=== PATIENT | female | born 1955 | race Caucasian/White ===

== ENCOUNTER 2022-12-31 11:52 | Inpatient (IN) ==
[2022-12-31] MEDS ORDERED: IOPAMIDOL 100 ML BOTTLE IV ONE (11:53)
[2022-12-31] MEDS ORDERED: 0.9 % SODIUM CHLORIDE 1,000 ML IV ONE ×3 (11:55→13:19)
[2022-12-31] MEDS ORDERED: ONDANSETRON 4 MG/2 ML VIAL IV ONE (11:55)
[2022-12-31 12:05] LABS: POC Calcium, Ionized 1.21 (1.16-1.32); POC Creatinine 0.9 (0.6-1.2); POC Potassium 3.1 (3.3-5.1)
[2022-12-31] MEDS: morphine 2 MG/ML VIAL IV PRN ×2 (12:11→13:04)
[2022-12-31 12:44] LABS: Basophils # (Auto) 0.05 K/mcL (0.00-0.30); Basophils % (Auto) 0.2 % (0.0-2.0); Eosinophils # (Auto) 0.01 K/mcL (0.00-0.70); Eosinophils % (Auto) 0 % (0.0-7.0); Hematocrit 46.1 % (34.1-44.9); Hemoglobin 16.3 g/dL (11.2-15.7); Lymphocytes # (Auto) 0.95 K/mcL (1.50-4.80); Lymphocytes % (Auto) 4.7 % (15.5-49.0); Mean Cell Volume 96.4 fL (80.0-100.0); Mean Corpuscular HGB Conc 35.4 g/dL (31.0-36.0); Mean Platelet Volume 10.4 fL (8.8-12.5); Neutrophils % (Auto) 90.7 % (38.0-78.0); Platelet Count 319 K/mcL (140-440); RBC 4.78 M/mcL (3.59-5.38); Red Cell Distribution Width 12.7 % (11.5-14.5); WBC 20.2 K/mcL (4.5-11.0)
[2022-12-31 13:13] LABS: ALT/SGPT 19 U/L (<40); AST/SGOT 22 U/L (<32); Albumin 4.7 gm/dL (3.2-5.2); Alkaline Phosphatase 117 U/L (39-117); Bilirubin,Direct 0.2 mg/dL (<0.3); Bilirubin,Total 0.7 mg/dL (0.1-1.0); Globulin 2.4 gm/dL (2.2-3.7)
[2022-12-31] MEDS ORDERED: PIPERACILLIN SODIUM/TAZOBACTAM 3.375 GM in DEXTROSE 5% IN WATER 50 ML IV ONE (13:14)
[2022-12-31] MEDS ORDERED: PIPERACILLIN SODIUM/TAZOBACTAM 4.5 GM in DEXTROSE 5% IN WATER 50 ML IV ONE ×2 (13:18)
[2022-12-31] MEDS ORDERED: PANTOPRAZOLE 40 MG VIAL IV ONE (13:27)
[2022-12-31] MEDS: HYDROmorphone 1 MG/ML SYRINGE IV PRN ×2 (13:27→18:57)
[2022-12-31] MEDS ORDERED: PHENYLephrine 1 MG/10 ML SYRINGE (ANEST) ONE (15:13)
[2022-12-31] MEDS ORDERED: HYDROmorphone 1 MG/ML SYRINGE ONE (15:13)
[2022-12-31] MEDS ORDERED: ONDANSETRON 4 MG/2 ML VIAL ONE (15:13)
[2022-12-31] MEDS ORDERED: DEXAMETHASONE 10 MG/ML VIAL ONE (15:13)
[2022-12-31] MEDS ORDERED: SUGAMMADEX SODIUM 200 MG/2 ML VIAL IV ONE (15:13)
[2022-12-31] MEDS ORDERED: fentaNYL 100 MCG/2 ML VIAL IV ONE (15:13)
[2022-12-31] MEDS ORDERED: POTASSIUM CHLORIDE 40 MEQ/20 ML VIAL IV ONE (15:13)
[2022-12-31] MEDS ORDERED: ROCURONIUM 10 MG/ML ML IV ONE (15:13)
[2022-12-31] MEDS ORDERED: PROPOFOL 200 MG/20 ML VIAL IV ONE (15:13)
[2022-12-31 15:14] LABS: INR 0.8 (0.9-1.1); Prothrombin Time 11.3 sec (11.9-14.5)
[2022-12-31 16:02] LABS: POC Calcium, Ionized 1.18 (1.16-1.32); POC Creatinine 0.8 (0.6-1.2)
[2022-12-31] MEDS ORDERED: POTASSIUM CHLORIDE 40 MEQ in DEXTROSE 5% IN WATER 500 ML IV ONE (16:07)
[2022-12-31] MEDS ORDERED: PROMETHAZINE 25 MG/ML VIAL IV PRN (17:22)
[2022-12-31] MEDS ORDERED: ACETAMINOPHEN 1,000 MG/100 ML BAG IV ONE (17:22)
[2022-12-31] MEDS ORDERED: fentaNYL 100 MCG/2 ML VIAL IV PRN (17:22)
[2022-12-31] MEDS ORDERED: diphenhydrAMINE 50 MG/ML VIAL IV PRN (17:22)
[2022-12-31] MEDS ORDERED: MEPERIDINE 25 MG/ML VIAL IV PRN (17:22)
[2022-12-31] MEDS ORDERED: ePHEDrine 50 MG/ML AMPUL IV PRN (17:22)
[2022-12-31] MEDS ORDERED: IPRATROPIUM/ALBUTEROL 3 ML AMPUL.NEB NEB PRN (17:22)
[2022-12-31] MEDS ORDERED: NALOXONE HCL 0.4 MG/ML VIAL IV PRN (17:22)
[2022-12-31] MEDS ORDERED: METHOCARBAMOL 1,000 MG/10 ML VIAL IV PRN (17:22)
[2022-12-31] MEDS ORDERED: METOPROLOL TARTRATE 5 MG/5 ML VIAL IV PRN (17:22)
[2022-12-31] MEDS ORDERED: HYDROmorphone 0.5 MG/0.5 ML SYRINGE IV PRN (17:22)
[2022-12-31] MEDS ORDERED: LACTATED RINGERS 1,000 ML IV SCH (17:30)
[2022-12-31] MEDS ORDERED: IPRATROPIUM/ALBUTEROL 3 ML AMPUL.NEB NEB ONE (18:51)
[2022-12-31] MEDS ORDERED: ONDANSETRON 4 MG/2 ML VIAL IV PRN (19:05)
[2022-12-31] MEDS ORDERED: LEVALBUTEROL 1.25 MG/3 ML AMPUL.NEB NEB ONE (19:07)
[2022-12-31] MEDS ORDERED: MEROPENEM 0.5 GM in 0.9 % SODIUM CHLORIDE 50 ML IV SCH (19:15)
[2022-12-31] MEDS ORDERED: METHOCARBAMOL 1,000 MG/10 ML VIAL ONE (19:16)
[2022-12-31] MEDS ORDERED: BACITRACIN TOPICAL OINT 15 GM TUBE TOPICAL ONE (19:19)
[2022-12-31] MEDS ORDERED: OPIUM/BELLADONNA ALKALOIDS 30 MG SUPP.RECT PR ONE (19:21)
[2022-12-31] MEDS: DEXTROSE 5%-LR 1,000 ML IV SCH (20:57)
[2022-12-31] MEDS: HYDROmorphone 0.5 MG/0.5 ML SYRINGE IV PRN (21:12)
[2022-12-31] MEDS: 0.9 % SODIUM CHLORIDE 10 ML SYRINGE IV SCH (21:25)
[2022-12-31] MEDS: PANTOPRAZOLE 40 MG VIAL IV SCH (21:26)
[2022-12-31] MEDS: MEROPENEM 1 GM in 0.9 % SODIUM CHLORIDE 50 ML IV SCH (22:42)
[2023-01-01] MEDS: IPRATROPIUM/ALBUTEROL 3 ML AMPUL.NEB NEB SCH ×3 (00:36→13:07)
[2023-01-01] MEDS: HYDROmorphone 0.5 MG/0.5 ML SYRINGE IV PRN ×8 (00:58→20:07)
[2023-01-01] MEDS: 0.9 % SODIUM CHLORIDE 10 ML SYRINGE IV SCH ×3 (04:28→23:33)
[2023-01-01 05:43] LABS: Hematocrit 41.4 % (34.1-44.9); Mean Cell Volume 102.5 fL (80.0-100.0); Mean Corpuscular HGB Conc 33.8 g/dL (31.0-36.0); Mean Platelet Volume 10.3 fL (8.8-12.5); Platelet Count 235 K/mcL (140-440); RBC 4.04 M/mcL (3.59-5.38); WBC 19.3 K/mcL (4.5-11.0)
[2023-01-01] MEDS: DEXTROSE 5%-LR 1,000 ML IV SCH ×4 (05:59→23:35)
[2023-01-01] MEDS: MEROPENEM 1 GM in 0.9 % SODIUM CHLORIDE 50 ML IV SCH ×3 (06:03→23:00)
[2023-01-01 06:16] LABS: Blood Urea Nitrogen 13 mg/dL (8-23); Calcium 8.1 mg/dL (8.6-10.4); Carbon Dioxide 22 mmol/L (22-30); Chloride 96 mmol/L (96-108); Glomerular Filtration Rate 77; Glucose 164 mg/dL (70-105)
[2023-01-01] MEDS ORDERED: VANCOMYCIN PER PHARMACY IV SCH (09:27)
[2023-01-01] MEDS: PANTOPRAZOLE 40 MG VIAL IV SCH ×2 (10:06→22:03)
[2023-01-01] MEDS: OCTREOTIDE ACETATE 100 MCG/ML VIAL SQ SCH ×3 (10:09→22:08)
[2023-01-01] MEDS: FLUCONAZOLE 400 MG/200 ML BAG IV SCH (10:30)
[2023-01-01] MEDS ORDERED: METOPROLOL TARTRATE 5 MG/5 ML VIAL IV ONE (13:37)
[2023-01-01] MEDS: VANCOMYCIN 1,500 MG in 0.9 % SODIUM CHLORIDE 500 ML IV SCH ×2 (13:45→20:55)
[2023-01-01] MEDS: IPRATROPIUM 2.5 ML AMPUL.NEB NEB SCH ×2 (14:22→21:10)
[2023-01-01] MEDS ORDERED: POTASSIUM CHLORIDE 40 MEQ in DEXTROSE 5% IN WATER 500 ML IV ONE ×2 (15:00→19:00)
[2023-01-01] MEDS ORDERED: OCTREOTIDE ACETATE 1,000 MCG/ML VIAL IV SCH (15:00)
[2023-01-01] MEDS: LEVALBUTEROL 0.63 MG/3 ML AMPUL.NEB NEB SCH ×2 (15:27→21:11)
[2023-01-01] MEDS: NICOTINE 7 MG PATCH TOPICAL SCH (16:10)
[2023-01-02] MEDS: HYDROmorphone 0.5 MG/0.5 ML SYRINGE IV PRN ×8 (02:29→23:12)
[2023-01-02] MEDS: 0.9 % SODIUM CHLORIDE 10 ML SYRINGE IV SCH ×4 (05:30→22:07)
[2023-01-02] MEDS: MEROPENEM 1 GM in 0.9 % SODIUM CHLORIDE 50 ML IV SCH ×3 (05:47→22:08)
[2023-01-02] MEDS: IPRATROPIUM 2.5 ML AMPUL.NEB NEB SCH ×3 (05:58→21:18)
[2023-01-02] MEDS: LEVALBUTEROL 0.63 MG/3 ML AMPUL.NEB NEB SCH ×3 (05:58→21:18)
[2023-01-02 06:17] LABS: Hematocrit 37.1 % (34.1-44.9); Hemoglobin 12.3 g/dL (11.2-15.7); Mean Cell Volume 103.3 fL (80.0-100.0); Mean Corpuscular HGB Conc 33.2 g/dL (31.0-36.0); Mean Platelet Volume 10.6 fL (8.8-12.5); Platelet Count 207 K/mcL (140-440); RBC 3.59 M/mcL (3.59-5.38); Red Cell Distribution Width 13.2 % (11.5-14.5); WBC 16.1 K/mcL (4.5-11.0)
[2023-01-02 06:44] LABS: Blood Urea Nitrogen 12 mg/dL (8-23); Calcium 8.2 mg/dL (8.6-10.4); Carbon Dioxide 26 mmol/L (22-30); Chloride 100 mmol/L (96-108); Glomerular Filtration Rate 95; Glucose 150 mg/dL (70-105)
[2023-01-02] MEDS: PANTOPRAZOLE 40 MG VIAL IV SCH ×2 (08:27→22:06)
[2023-01-02] MEDS ORDERED: MAGNESIUM SULFATE 4 GM/100 ML BAG IV ONE (09:54)
[2023-01-02] MEDS ORDERED: PNEUMOCOCCAL 23-VAL P-SAC VAC 0.5 ML SYRINGE IM ONE (10:00)
[2023-01-02] MEDS: OCTREOTIDE ACETATE 100 MCG/ML VIAL SQ SCH ×3 (10:07→22:06)
[2023-01-02] MEDS: FLUCONAZOLE 400 MG/200 ML BAG IV SCH (10:08)
[2023-01-02] MEDS: VANCOMYCIN 1,500 MG in 0.9 % SODIUM CHLORIDE 500 ML IV SCH ×2 (10:08→22:07)
[2023-01-02] MEDS: NICOTINE 7 MG PATCH TOPICAL SCH (10:09)
[2023-01-02] MEDS: DEXTROSE 5%-LR 1,000 ML IV SCH ×2 (12:10→14:24)
[2023-01-03] MEDS: DEXTROSE 5%-LR 1,000 ML IV SCH ×2 (02:03→12:58)
[2023-01-03] MEDS: HYDROmorphone 0.5 MG/0.5 ML SYRINGE IV PRN ×7 (04:39→23:28)
[2023-01-03] MEDS: MEROPENEM 1 GM in 0.9 % SODIUM CHLORIDE 50 ML IV SCH ×3 (05:12→22:51)
[2023-01-03] MEDS: 0.9 % SODIUM CHLORIDE 10 ML SYRINGE IV SCH ×4 (06:06→22:00)
[2023-01-03 06:15] LABS: Hematocrit 37.4 % (34.1-44.9); Mean Cell Volume 106.3 fL (80.0-100.0); Mean Corpuscular HGB Conc 32.1 g/dL (31.0-36.0); Mean Platelet Volume 10.5 fL (8.8-12.5); Platelet Count 214 K/mcL (140-440); RBC 3.52 M/mcL (3.59-5.38); Red Cell Distribution Width 13.4 % (11.5-14.5); WBC 11.8 K/mcL (4.5-11.0)
[2023-01-03] MEDS: LEVALBUTEROL 0.63 MG/3 ML AMPUL.NEB NEB SCH (06:25)
[2023-01-03 06:43] LABS: Blood Urea Nitrogen 12 mg/dL (8-23); Calcium 8.2 mg/dL (8.6-10.4); Carbon Dioxide 26 mmol/L (22-30); Chloride 103 mmol/L (96-108); Glomerular Filtration Rate 95; Glucose 137 mg/dL (70-105)
[2023-01-03] MEDS: IPRATROPIUM 2.5 ML AMPUL.NEB NEB SCH (07:00)
[2023-01-03] MEDS: FLUCONAZOLE 400 MG/200 ML BAG IV SCH (08:35)
[2023-01-03] MEDS: VANCOMYCIN 1,500 MG in 0.9 % SODIUM CHLORIDE 500 ML IV SCH ×2 (08:35→21:06)
[2023-01-03] MEDS: PANTOPRAZOLE 40 MG VIAL IV SCH ×2 (08:41→20:14)
[2023-01-03] MEDS: OCTREOTIDE ACETATE 100 MCG/ML VIAL SQ SCH ×3 (08:46→20:14)
[2023-01-03] MEDS: NICOTINE 7 MG PATCH TOPICAL SCH (10:27)
[2023-01-03] MEDS ORDERED: ALBUTEROL SULFATE 2.5 MG/3 ML NEBULIZER NEB PRN (12:38)
[2023-01-03] MEDS ORDERED: FUROSEMIDE 40 MG/4 ML VIAL IV ONE ×3 (12:53→18:45)
[2023-01-03] MEDS: IPRATROPIUM/ALBUTEROL 3 ML AMPUL.NEB NEB SCH ×2 (14:10→19:25)
[2023-01-03] MEDS: HEPARIN 5,000 UNIT/ML VIAL SQ SCH ×2 (15:26→23:18)
[2023-01-03] MEDS ORDERED: ACETAMINOPHEN 650 MG/65 ML BAG IV PRN (15:38)
[2023-01-03] MEDS ORDERED: IOPAMIDOL 100 ML BOTTLE IV ONE (18:00)
[2023-01-03 19:01] LABS: ABG Methemoglobin 0.2 % (0.4-1.5); Total Hemoglobin 13.6 gm/Dl (12.0-15.0); VBG Base Excess 2 (-2-3); VBG HCO3 27.9 mmol/L (24.0-28.0); VBG Oxygen Saturation 86.8 % (40.0-70.0); VBG PCO2 47.1 mmHg (41.0-51.0); VBG PH 7.39 U (7.32-7.42); VBG PO2 55.8 mmHg (25.0-40.0); VBG Total CO2 29.3 mmol/L (25.0-29.0)
[2023-01-03] MEDS: ACETAMINOPHEN 1,000 MG/100 ML BAG IV SCH (20:15)
[2023-01-04] MEDS: IPRATROPIUM/ALBUTEROL 3 ML AMPUL.NEB NEB SCH ×4 (00:42→19:55)
[2023-01-04] MEDS: ACETAMINOPHEN 1,000 MG/100 ML BAG IV SCH ×3 (03:53→20:51)
[2023-01-04] MEDS: MEROPENEM 1 GM in 0.9 % SODIUM CHLORIDE 50 ML IV SCH ×3 (05:10→21:50)
[2023-01-04] MEDS: 0.9 % SODIUM CHLORIDE 10 ML SYRINGE IV SCH ×8 (05:11→21:42)
[2023-01-04] MEDS: HEPARIN 5,000 UNIT/ML VIAL SQ SCH ×3 (05:12→21:44)
[2023-01-04] MEDS: HYDROmorphone 0.5 MG/0.5 ML SYRINGE IV PRN ×5 (05:17→20:15)
[2023-01-04 06:41] LABS: Basophils # (Auto) 0.04 K/mcL (0.00-0.30); Basophils % (Auto) 0.5 % (0.0-2.0); Eosinophils # (Auto) 0.28 K/mcL (0.00-0.70); Eosinophils % (Auto) 3.2 % (0.0-7.0); Hematocrit 37.9 % (34.1-44.9); Hemoglobin 12.2 g/dL (11.2-15.7); Lymphocytes # (Auto) 1.12 K/mcL (1.50-4.80); Lymphocytes % (Auto) 12.7 % (15.5-49.0); Mean Cell Volume 105.6 fL (80.0-100.0); Mean Corpuscular HGB Conc 32.2 g/dL (31.0-36.0); Mean Platelet Volume 10.2 fL (8.8-12.5); Monocytes # (Auto) 0.65 K/mcL (0.10-0.90); Monocytes % (Auto) 7.4 % (1.0-12.0); Neutrophils % (Auto) 75.6 % (38.0-78.0); Platelet Count 220 K/mcL (140-440); RBC 3.59 M/mcL (3.59-5.38); WBC 8.8 K/mcL (4.5-11.0)
[2023-01-04 07:03] LABS: ALT/SGPT 92 U/L (<40); AST/SGOT 29 U/L (<32); Albumin 2.6 gm/dL (3.2-5.2); Alkaline Phosphatase 74 U/L (39-117); Bilirubin,Direct < 0.2 mg/dL (0-0.3); Bilirubin,Total 0.5 mg/dL (0.1-1.0); Blood Urea Nitrogen 11 mg/dL (8-23); Calcium 8.4 mg/dL (8.6-10.4); Carbon Dioxide 30 mmol/L (22-30); Chloride 97 mmol/L (96-108); Globulin 2.5 gm/dL (2.2-3.7); Glomerular Filtration Rate 77; Glucose 78 mg/dL (70-105); Lactate Dehydrogenase 217 U/L (135-225); Phosphorous 2.6 mg/dL (2.5-4.5); Triglycerides 130 mg/dL (<150); Uric Acid 4.3 mg/dL (2.5-8.0)
[2023-01-04] MEDS: PANTOPRAZOLE 40 MG VIAL IV SCH ×2 (08:49→21:29)
[2023-01-04] MEDS: FLUCONAZOLE 400 MG/200 ML BAG IV SCH (08:49)
[2023-01-04] MEDS: NICOTINE 7 MG PATCH TOPICAL SCH (09:54)
[2023-01-04] MEDS: OCTREOTIDE ACETATE 100 MCG/ML VIAL SQ SCH ×3 (11:25→21:31)
[2023-01-04] MEDS: VANCOMYCIN 1,500 MG in 0.9 % SODIUM CHLORIDE 500 ML IV SCH (11:51)
[2023-01-05] MEDS: IPRATROPIUM/ALBUTEROL 3 ML AMPUL.NEB NEB SCH ×4 (00:59→19:15)
[2023-01-05] MEDS: HYDROmorphone 0.5 MG/0.5 ML SYRINGE IV PRN ×5 (01:00→22:41)
[2023-01-05] MEDS: 0.9 % SODIUM CHLORIDE 10 ML SYRINGE IV SCH ×6 (01:00→22:05)
[2023-01-05] MEDS: ACETAMINOPHEN 1,000 MG/100 ML BAG IV SCH ×3 (05:10→20:50)
[2023-01-05] MEDS: MEROPENEM 1 GM in 0.9 % SODIUM CHLORIDE 50 ML IV SCH ×3 (05:55→22:04)
[2023-01-05] MEDS: HEPARIN 5,000 UNIT/ML VIAL SQ SCH ×3 (06:06→21:55)
[2023-01-05 07:25] LABS: Vancomycin,Random 8.7 ug/mL
[2023-01-05] MEDS: VANCOMYCIN 1,500 MG in 0.9 % SODIUM CHLORIDE 500 ML IV SCH (09:12)
[2023-01-05] MEDS: FLUCONAZOLE 400 MG/200 ML BAG IV SCH (09:12)
[2023-01-05] MEDS: PANTOPRAZOLE 40 MG VIAL IV SCH ×2 (09:12→21:34)
[2023-01-05] MEDS: OCTREOTIDE ACETATE 100 MCG/ML VIAL SQ SCH ×3 (09:37→21:36)
[2023-01-05] MEDS: NICOTINE 7 MG PATCH TOPICAL SCH (09:38)
[2023-01-05 11:23] LABS: ALT/SGPT 64 U/L (<40); AST/SGOT 22 U/L (<32); Albumin 2.9 gm/dL (3.2-5.2); Alkaline Phosphatase 71 U/L (39-117); Bilirubin,Direct < 0.2 mg/dL (0-0.3); Bilirubin,Total 0.5 mg/dL (0.1-1.0); Blood Urea Nitrogen 18 mg/dL (8-23); Calcium 8.8 mg/dL (8.6-10.4); Carbon Dioxide 28 mmol/L (22-30); Chloride 100 mmol/L (96-108); Globulin 2.8 gm/dL (2.2-3.7); Glomerular Filtration Rate 90; Glucose 84 mg/dL (70-105); Lactate Dehydrogenase 232 U/L (135-225); Phosphorous 2.5 mg/dL (2.5-4.5); Triglycerides 172 mg/dL (<150); Uric Acid 5.2 mg/dL (2.5-8.0)
[2023-01-05] MEDS ORDERED: 0.9 % SODIUM CHLORIDE 1,000 ML IV SCH (16:15)
[2023-01-05] MEDS ORDERED: hydrALAZINE 20 MG/ML VIAL IV PRN (16:20)
[2023-01-05] MEDS ORDERED: LABETALOL 5 MG/ML ML IV PRN (16:20)
[2023-01-06] MEDS: IPRATROPIUM/ALBUTEROL 3 ML AMPUL.NEB NEB SCH ×4 (01:35→18:33)
[2023-01-06] MEDS: ACETAMINOPHEN 1,000 MG/100 ML BAG IV SCH ×3 (03:27→19:46)
[2023-01-06] MEDS: HYDROmorphone 0.5 MG/0.5 ML SYRINGE IV PRN ×6 (03:55→22:07)
[2023-01-06] MEDS: MEROPENEM 1 GM in 0.9 % SODIUM CHLORIDE 50 ML IV SCH ×3 (05:46→21:27)
[2023-01-06] MEDS: HEPARIN 5,000 UNIT/ML VIAL SQ SCH ×3 (05:51→21:27)
[2023-01-06] MEDS: 0.9 % SODIUM CHLORIDE 10 ML SYRINGE IV SCH ×5 (06:30→21:27)
[2023-01-06] MEDS: PANTOPRAZOLE 40 MG VIAL IV SCH ×2 (08:15→21:27)
[2023-01-06] MEDS: OCTREOTIDE ACETATE 100 MCG/ML VIAL SQ SCH ×3 (08:15→21:27)
[2023-01-06] MEDS: FLUCONAZOLE 400 MG/200 ML BAG IV SCH (08:16)
[2023-01-06] MEDS: VANCOMYCIN 1,500 MG in 0.9 % SODIUM CHLORIDE 500 ML IV SCH (08:16)
[2023-01-06] MEDS: NICOTINE 7 MG PATCH TOPICAL SCH (11:14)
[2023-01-07] MEDS: IPRATROPIUM/ALBUTEROL 3 ML AMPUL.NEB NEB SCH ×4 (01:10→18:37)
[2023-01-07] MEDS: HYDROmorphone 0.5 MG/0.5 ML SYRINGE IV PRN ×6 (01:34→21:30)
[2023-01-07] MEDS: ACETAMINOPHEN 1,000 MG/100 ML BAG IV SCH ×3 (04:00→19:40)
[2023-01-07] MEDS: HEPARIN 5,000 UNIT/ML VIAL SQ SCH ×3 (05:32→21:18)
[2023-01-07] MEDS: 0.9 % SODIUM CHLORIDE 10 ML SYRINGE IV SCH ×5 (05:32→21:18)
[2023-01-07] MEDS: MEROPENEM 1 GM in 0.9 % SODIUM CHLORIDE 50 ML IV SCH ×3 (05:33→21:30)
[2023-01-07 06:14] LABS: Hematocrit 36.8 % (34.1-44.9); Hemoglobin 11.7 g/dL (11.2-15.7); Mean Corpuscular HGB Conc 31.8 g/dL (31.0-36.0); Mean Platelet Volume 10.1 fL (8.8-12.5); Platelet Count 274 K/mcL (140-440); RBC 3.44 M/mcL (3.59-5.38)
[2023-01-07 06:30] LABS: ALT/SGPT 38 U/L (<40); AST/SGOT 19 U/L (<32); Albumin 2.6 gm/dL (3.2-5.2); Albumin/Globulin Ratio 0.9 (1.0-2.3); Alkaline Phosphatase 69 U/L (39-117); Bilirubin,Direct < 0.2 mg/dL (0-0.3); Bilirubin,Total 0.4 mg/dL (0.1-1.0); Blood Urea Nitrogen 16 mg/dL (8-23); Calcium 8.7 mg/dL (8.6-10.4); Carbon Dioxide 23 mmol/L (22-30); Chloride 105 mmol/L (96-108); Globulin 2.8 gm/dL (2.2-3.7); Glomerular Filtration Rate 90; Glucose 82 mg/dL (70-105); Lactate Dehydrogenase 259 U/L (135-225); Triglycerides 185 mg/dL (<150)
[2023-01-07] MEDS ORDERED: BISACODYL 10 MG SUPP.RECT PR SCH (08:14)
[2023-01-07] MEDS: FLUCONAZOLE 400 MG/200 ML BAG IV SCH ×2 (08:30→09:05)
[2023-01-07] MEDS: PANTOPRAZOLE 40 MG VIAL IV SCH ×2 (08:42→21:17)
[2023-01-07] MEDS: NICOTINE 7 MG PATCH TOPICAL SCH (08:43)
[2023-01-07] MEDS: OCTREOTIDE ACETATE 100 MCG/ML VIAL SQ SCH ×3 (09:06→21:18)
[2023-01-07] MEDS: VANCOMYCIN 1,500 MG in 0.9 % SODIUM CHLORIDE 500 ML IV SCH (09:41)
[2023-01-07] MEDS ORDERED: DEXTROSE 5%-NS 1,000 ML IV SCH (10:45)
[2023-01-07] MEDS: BISACODYL 10 MG SUPP.RECT PR SCH (21:17)
[2023-01-08] MEDS: HYDROmorphone 0.5 MG/0.5 ML SYRINGE IV PRN ×5 (01:52→22:12)
[2023-01-08] MEDS: ACETAMINOPHEN 1,000 MG/100 ML BAG IV SCH ×3 (03:59→20:09)
[2023-01-08] MEDS: IPRATROPIUM/ALBUTEROL 3 ML AMPUL.NEB NEB SCH ×4 (04:01→19:20)
[2023-01-08] MEDS: HEPARIN 5,000 UNIT/ML VIAL SQ SCH ×3 (05:35→21:22)
[2023-01-08] MEDS: 0.9 % SODIUM CHLORIDE 10 ML SYRINGE IV SCH ×5 (05:36→21:08)
[2023-01-08] MEDS: MEROPENEM 1 GM in 0.9 % SODIUM CHLORIDE 50 ML IV SCH ×3 (05:36→21:22)
[2023-01-08] MEDS: BISACODYL 10 MG SUPP.RECT PR SCH ×2 (08:29→21:07)
[2023-01-08] MEDS: PANTOPRAZOLE 40 MG VIAL IV SCH ×2 (08:29→21:07)
[2023-01-08] MEDS: OCTREOTIDE ACETATE 100 MCG/ML VIAL SQ SCH ×3 (08:55→21:22)
[2023-01-08] MEDS: VANCOMYCIN 1,500 MG in 0.9 % SODIUM CHLORIDE 500 ML IV SCH (09:03)
[2023-01-08] MEDS: FLUCONAZOLE 400 MG/200 ML BAG IV SCH (09:10)
[2023-01-08] MEDS: NICOTINE 7 MG PATCH TOPICAL SCH (09:15)
[2023-01-08] MEDS: ENALAPRILAT 1.25 MG/ML VIAL IV PRN (12:29)
[2023-01-09] MEDS: HYDROmorphone 0.5 MG/0.5 ML SYRINGE IV PRN ×5 (01:04→19:46)
[2023-01-09] MEDS: IPRATROPIUM/ALBUTEROL 3 ML AMPUL.NEB NEB SCH ×4 (01:15→18:29)
[2023-01-09] MEDS: DICYCLOMINE 20 MG TABLET PO SCH ×5 (01:46→22:27)
[2023-01-09] MEDS: ACETAMINOPHEN 1,000 MG/100 ML BAG IV SCH ×4 (03:46→19:47)
[2023-01-09] MEDS: ENALAPRILAT 1.25 MG/ML VIAL IV PRN (03:55)
[2023-01-09] MEDS: MEROPENEM 1 GM in 0.9 % SODIUM CHLORIDE 50 ML IV SCH ×3 (05:54→23:58)
[2023-01-09] MEDS: HEPARIN 5,000 UNIT/ML VIAL SQ SCH ×3 (05:54→22:28)
[2023-01-09] MEDS: 0.9 % SODIUM CHLORIDE 10 ML SYRINGE IV SCH ×5 (05:55→22:29)
[2023-01-09] MEDS: PANTOPRAZOLE 40 MG VIAL IV SCH ×2 (08:23→22:27)
[2023-01-09] MEDS ORDERED: FUROSEMIDE 40 MG/4 ML VIAL IV SCH (09:20)
[2023-01-09] MEDS ORDERED: ALBUMIN HUMAN 12.5 GM/50 ML VIAL IV SCH (09:20)
[2023-01-09] MEDS: BISACODYL 10 MG SUPP.RECT PR SCH ×2 (10:01→22:28)
[2023-01-09] MEDS: OCTREOTIDE ACETATE 100 MCG/ML VIAL SQ SCH ×3 (10:01→22:38)
[2023-01-09] MEDS: NICOTINE 7 MG PATCH TOPICAL SCH (10:11)
[2023-01-10] MEDS: IPRATROPIUM/ALBUTEROL 3 ML AMPUL.NEB NEB SCH ×4 (00:36→19:44)
[2023-01-10] MEDS: HYDROmorphone 0.5 MG/0.5 ML SYRINGE IV PRN ×4 (03:29→20:26)
[2023-01-10] MEDS: DICYCLOMINE 20 MG TABLET PO SCH ×4 (05:02→23:25)
[2023-01-10] MEDS: HEPARIN 5,000 UNIT/ML VIAL SQ SCH ×3 (05:02→22:33)
[2023-01-10] MEDS: ACETAMINOPHEN 1,000 MG/100 ML BAG IV SCH ×3 (05:02→19:50)
[2023-01-10] MEDS: 0.9 % SODIUM CHLORIDE 10 ML SYRINGE IV SCH ×5 (05:02→22:34)
[2023-01-10] MEDS: MEROPENEM 1 GM in 0.9 % SODIUM CHLORIDE 50 ML IV SCH ×3 (05:08→22:49)
[2023-01-10 06:38] LABS: Basophils # (Auto) 0.05 K/mcL (0.00-0.30); Basophils % (Auto) 0.6 % (0.0-2.0); Eosinophils # (Auto) 0.36 K/mcL (0.00-0.70); Eosinophils % (Auto) 4.1 % (0.0-7.0); Hematocrit 36.7 % (34.1-44.9); Hemoglobin 12.2 g/dL (11.2-15.7); Lymphocytes # (Auto) 1.41 K/mcL (1.50-4.80); Mean Cell Volume 102.5 fL (80.0-100.0); Mean Corpuscular HGB Conc 33.2 g/dL (31.0-36.0); Mean Platelet Volume 10.4 fL (8.8-12.5); Monocytes # (Auto) 0.54 K/mcL (0.10-0.90); Monocytes % (Auto) 6.1 % (1.0-12.0); Neutrophils % (Auto) 72.3 % (38.0-78.0); Platelet Count 305 K/mcL (140-440); RBC 3.58 M/mcL (3.59-5.38); Red Cell Distribution Width 13.2 % (11.5-14.5); WBC 8.8 K/mcL (4.5-11.0)
[2023-01-10 07:01] LABS: ALT/SGPT 25 U/L (<40); AST/SGOT 21 U/L (<32); Albumin 2.7 gm/dL (3.2-5.2); Alkaline Phosphatase 88 U/L (39-117); Bilirubin,Direct < 0.2 mg/dL (0-0.3); Bilirubin,Total 0.5 mg/dL (0.1-1.0); Blood Urea Nitrogen 13 mg/dL (8-23); Calcium 8.5 mg/dL (8.6-10.4); Carbon Dioxide 25 mmol/L (22-30); Chloride 100 mmol/L (96-108); Globulin 2.7 gm/dL (2.2-3.7); Glomerular Filtration Rate 90; Glucose 90 mg/dL (70-105); Lactate Dehydrogenase 343 U/L (135-225); Phosphorous 3.4 mg/dL (2.5-4.5); Triglycerides 146 mg/dL (<150); Uric Acid 4.3 mg/dL (2.5-8.0)
[2023-01-10 08:13] LABS: Prothrombin Time 13.1 sec (11.9-14.5)
[2023-01-10] MEDS: NICOTINE 7 MG PATCH TOPICAL SCH (08:27)
[2023-01-10] MEDS ORDERED: POTASSIUM CHLORIDE 20 MEQ in DEXTROSE 5% IN WATER 250 ML IV ONE (08:41)
[2023-01-10] MEDS: PANTOPRAZOLE 40 MG VIAL IV SCH ×2 (08:49→22:32)
[2023-01-10] MEDS: BISACODYL 10 MG SUPP.RECT PR SCH ×3 (08:49→22:39)
[2023-01-10] MEDS: OCTREOTIDE ACETATE 100 MCG/ML VIAL SQ SCH ×3 (08:49→22:33)
[2023-01-11] MEDS: IPRATROPIUM/ALBUTEROL 3 ML AMPUL.NEB NEB SCH ×5 (01:02→23:59)
[2023-01-11] MEDS: ACETAMINOPHEN 1,000 MG/100 ML BAG IV SCH ×3 (04:32→20:24)
[2023-01-11] MEDS: HYDROmorphone 0.5 MG/0.5 ML SYRINGE IV PRN ×6 (04:32→21:55)
[2023-01-11] MEDS: DICYCLOMINE 20 MG TABLET PO SCH ×3 (05:12→17:41)
[2023-01-11] MEDS: MEROPENEM 1 GM in 0.9 % SODIUM CHLORIDE 50 ML IV SCH ×3 (05:12→22:13)
[2023-01-11] MEDS: 0.9 % SODIUM CHLORIDE 10 ML SYRINGE IV SCH ×7 (05:13→20:21)
[2023-01-11] MEDS: HEPARIN 5,000 UNIT/ML VIAL SQ SCH ×3 (05:21→22:13)
[2023-01-11 06:34] LABS: Basophils # (Auto) 0.06 K/mcL (0.00-0.30); Basophils % (Auto) 0.8 % (0.0-2.0); Eosinophils # (Auto) 0.55 K/mcL (0.00-0.70); Eosinophils % (Auto) 7.1 % (0.0-7.0); Hematocrit 36.7 % (34.1-44.9); Hemoglobin 12.3 g/dL (11.2-15.7); Lymphocytes # (Auto) 1.45 K/mcL (1.50-4.80); Lymphocytes % (Auto) 18.8 % (15.5-49.0); Mean Cell Volume 100.8 fL (80.0-100.0); Mean Corpuscular HGB Conc 33.5 g/dL (31.0-36.0); Mean Platelet Volume 10.3 fL (8.8-12.5); Monocytes % (Auto) 6.5 % (1.0-12.0); Neutrophils % (Auto) 66.2 % (38.0-78.0); Platelet Count 298 K/mcL (140-440); RBC 3.64 M/mcL (3.59-5.38); Red Cell Distribution Width 13.4 % (11.5-14.5); WBC 7.7 K/mcL (4.5-11.0)
[2023-01-11] MEDS ORDERED: POTASSIUM CHLORIDE 40 MEQ in DEXTROSE 5% IN WATER 500 ML IV ONE (07:46)
[2023-01-11] MEDS: BISACODYL 10 MG SUPP.RECT PR SCH ×2 (08:34→20:07)
[2023-01-11] MEDS: PANTOPRAZOLE 40 MG VIAL IV SCH ×2 (08:34→20:25)
[2023-01-11] MEDS: OCTREOTIDE ACETATE 100 MCG/ML VIAL SQ SCH ×2 (09:23→13:26)
[2023-01-11] MEDS: NICOTINE 7 MG PATCH TOPICAL SCH (09:25)
[2023-01-12] MEDS: DICYCLOMINE 20 MG TABLET PO SCH ×4 (00:21→18:29)
[2023-01-12] MEDS: ACETAMINOPHEN 1,000 MG/100 ML BAG IV SCH ×3 (04:26→20:42)
[2023-01-12] MEDS: 0.9 % SODIUM CHLORIDE 10 ML SYRINGE IV SCH ×5 (04:31→20:45)
[2023-01-12] MEDS: HYDROmorphone 0.5 MG/0.5 ML SYRINGE IV PRN ×3 (05:53→16:20)
[2023-01-12] MEDS: MEROPENEM 1 GM in 0.9 % SODIUM CHLORIDE 50 ML IV SCH (05:56)
[2023-01-12] MEDS: HEPARIN 5,000 UNIT/ML VIAL SQ SCH ×3 (06:26→20:45)
[2023-01-12] MEDS: IPRATROPIUM/ALBUTEROL 3 ML AMPUL.NEB NEB SCH ×3 (06:48→18:50)
[2023-01-12] MEDS: PANTOPRAZOLE 40 MG VIAL IV SCH ×2 (08:11→20:43)
[2023-01-12] MEDS: BISACODYL 10 MG SUPP.RECT PR SCH ×2 (08:12→20:45)
[2023-01-12] MEDS ORDERED: ALBUMIN HUMAN 12.5 GM/50 ML VIAL IV ONE (09:00)
[2023-01-12] MEDS ORDERED: FUROSEMIDE 40 MG/4 ML VIAL IV ONE (09:00)
[2023-01-12] MEDS: NICOTINE 7 MG PATCH TOPICAL SCH (09:39)
[2023-01-13] MEDS: DICYCLOMINE 20 MG TABLET PO SCH ×4 (00:26→17:21)
[2023-01-13] MEDS: HYDROmorphone 0.5 MG/0.5 ML SYRINGE IV PRN ×3 (00:29→08:28)
[2023-01-13] MEDS: IPRATROPIUM/ALBUTEROL 3 ML AMPUL.NEB NEB SCH ×4 (00:45→19:20)
[2023-01-13] MEDS: ACETAMINOPHEN 1,000 MG/100 ML BAG IV SCH ×3 (04:30→20:35)
[2023-01-13] MEDS: 0.9 % SODIUM CHLORIDE 10 ML SYRINGE IV SCH ×5 (04:31→20:37)
[2023-01-13] MEDS: HEPARIN 5,000 UNIT/ML VIAL SQ SCH ×3 (05:05→20:35)
[2023-01-13 07:28] LABS: Hemoglobin 12.2 g/dL (11.2-15.7); Mean Cell Volume 100.8 fL (80.0-100.0); Mean Corpuscular HGB Conc 33.9 g/dL (31.0-36.0); Mean Platelet Volume 10.9 fL (8.8-12.5); Platelet Count 319 K/mcL (140-440); RBC 3.57 M/mcL (3.59-5.38); Red Cell Distribution Width 13.5 % (11.5-14.5); WBC 8.3 K/mcL (4.5-11.0)
[2023-01-13] MEDS: BISACODYL 10 MG SUPP.RECT PR SCH ×2 (08:16→20:37)
[2023-01-13] MEDS: PANTOPRAZOLE 40 MG VIAL IV SCH (08:16)
[2023-01-13] MEDS: NICOTINE 7 MG PATCH TOPICAL SCH (09:20)
[2023-01-13] MEDS ORDERED: POLYETHYLENE GLYCOL 3350 17 GM PACKET PO PRN (10:00)
[2023-01-13] MEDS: PANTOPRAZOLE 40 MG TABLET PO SCH ×2 (10:54→20:36)
[2023-01-13 11:17] LABS: Blood Urea Nitrogen 10 mg/dL (8-23); Calcium 8.5 mg/dL (8.6-10.4); Carbon Dioxide 25 mmol/L (22-30); Chloride 94 mmol/L (96-108); Glomerular Filtration Rate 90; Glucose 82 mg/dL (70-105)
[2023-01-13] MEDS: POTASSIUM CHLORIDE 20 MEQ TABLET PO SCH ×2 (11:59→17:21)
[2023-01-13] MEDS: oxyCODONE IR 5 MG TABLET PO PRN ×3 (13:36→21:41)
[2023-01-13] MEDS: ENALAPRILAT 1.25 MG/ML VIAL IV PRN (20:35)
[2023-01-14] MEDS: IPRATROPIUM/ALBUTEROL 3 ML AMPUL.NEB NEB SCH ×4 (00:44→19:08)
[2023-01-14] MEDS: DICYCLOMINE 20 MG TABLET PO SCH ×4 (00:44→17:06)
[2023-01-14] MEDS: oxyCODONE IR 5 MG TABLET PO PRN ×5 (01:51→21:47)
[2023-01-14] MEDS: HEPARIN 5,000 UNIT/ML VIAL SQ SCH ×3 (04:46→21:47)
[2023-01-14] MEDS: ACETAMINOPHEN 1,000 MG/100 ML BAG IV SCH ×3 (04:57→20:19)
[2023-01-14] MEDS: 0.9 % SODIUM CHLORIDE 10 ML SYRINGE IV SCH ×6 (04:58→21:49)
[2023-01-14 07:53] LABS: Blood Urea Nitrogen 7 mg/dL (8-23); Calcium 8.6 mg/dL (8.6-10.4); Carbon Dioxide 26 mmol/L (22-30); Chloride 100 mmol/L (96-108); Glomerular Filtration Rate 90; Glucose 88 mg/dL (70-105)
[2023-01-14] MEDS: PANTOPRAZOLE 40 MG TABLET PO SCH ×2 (08:18→21:47)
[2023-01-14] MEDS: BISACODYL 10 MG SUPP.RECT PR SCH ×2 (08:19→21:48)
[2023-01-14] MEDS: NICOTINE 7 MG PATCH TOPICAL SCH (10:25)
[2023-01-14] MEDS: POTASSIUM CHLORIDE 20 MEQ TABLET PO SCH ×2 (10:25→17:05)
[2023-01-14] MEDS: LISINOPRIL 5 MG TABLET PO SCH (10:25)
[2023-01-15] MEDS: DICYCLOMINE 20 MG TABLET PO SCH ×5 (00:18→23:45)
[2023-01-15] MEDS: IPRATROPIUM/ALBUTEROL 3 ML AMPUL.NEB NEB SCH ×4 (00:34→18:58)
[2023-01-15] MEDS: oxyCODONE IR 5 MG TABLET PO PRN ×5 (02:15→23:45)
[2023-01-15] MEDS: ACETAMINOPHEN 1,000 MG/100 ML BAG IV SCH ×3 (04:31→20:24)
[2023-01-15] MEDS: 0.9 % SODIUM CHLORIDE 10 ML SYRINGE IV SCH ×5 (04:32→21:36)
[2023-01-15] MEDS: HEPARIN 5,000 UNIT/ML VIAL SQ SCH ×3 (06:02→21:36)
[2023-01-15 07:45] LABS: Hematocrit 35.1 % (34.1-44.9); Hemoglobin 11.9 g/dL (11.2-15.7); Mean Cell Volume 101.2 fL (80.0-100.0); Mean Corpuscular HGB Conc 33.9 g/dL (31.0-36.0); Platelet Count 352 K/mcL (140-440); RBC 3.47 M/mcL (3.59-5.38); Red Cell Distribution Width 14.3 % (11.5-14.5); WBC 8.4 K/mcL (4.5-11.0)
[2023-01-15] MEDS: LISINOPRIL 5 MG TABLET PO SCH (08:09)
[2023-01-15] MEDS: PANTOPRAZOLE 40 MG TABLET PO SCH ×2 (08:09→20:25)
[2023-01-15] MEDS: BISACODYL 10 MG SUPP.RECT PR SCH ×2 (08:10→21:36)
[2023-01-15] MEDS: NICOTINE 7 MG PATCH TOPICAL SCH (10:18)
[2023-01-15 12:16] LABS: ALT/SGPT 22 U/L (<40); AST/SGOT 26 U/L (<32); Albumin 2.7 gm/dL (3.2-5.2); Albumin/Globulin Ratio 1.1 (1.0-2.3); Alkaline Phosphatase 106 U/L (39-117); Bilirubin,Direct 0.2 mg/dL (<0.3); Bilirubin,Total 0.6 mg/dL (0.1-1.0); Blood Urea Nitrogen 6 mg/dL (8-23); Calcium 8.9 mg/dL (8.6-10.4); Carbon Dioxide 24 mmol/L (22-30); Chloride 99 mmol/L (96-108); Globulin 2.5 gm/dL (2.2-3.7); Glomerular Filtration Rate 66; Glucose 80 mg/dL (70-105); Lactate Dehydrogenase 341 U/L (135-225); Phosphorous 3.5 mg/dL (2.5-4.5); Triglycerides 96 mg/dL (<150); Uric Acid 3.2 mg/dL (2.5-8.0)
[2023-01-15] MEDS ORDERED: POTASSIUM CHLORIDE 20 MEQ TABLET PO SCH (14:04)
[2023-01-15] MEDS ORDERED: FUROSEMIDE 20 MG/2 ML VIAL IV SCH (14:04)
[2023-01-16] MEDS: IPRATROPIUM/ALBUTEROL 3 ML AMPUL.NEB NEB SCH ×3 (00:12→12:28)
[2023-01-16] MEDS: ACETAMINOPHEN 1,000 MG/100 ML BAG IV SCH ×2 (03:57→11:36)
[2023-01-16] MEDS: 0.9 % SODIUM CHLORIDE 10 ML SYRINGE IV SCH ×3 (04:00→13:48)
[2023-01-16] MEDS: DICYCLOMINE 20 MG TABLET PO SCH ×2 (05:55→11:36)
[2023-01-16] MEDS: HEPARIN 5,000 UNIT/ML VIAL SQ SCH ×2 (05:55→13:48)
[2023-01-16] MEDS: oxyCODONE IR 5 MG TABLET PO PRN ×2 (06:32→12:24)
[2023-01-16 06:57] LABS: Blood Urea Nitrogen 7 mg/dL (8-23); Calcium 8.7 mg/dL (8.6-10.4); Carbon Dioxide 24 mmol/L (22-30); Chloride 102 mmol/L (96-108); Glomerular Filtration Rate 66; Glucose 85 mg/dL (70-105)
[2023-01-16] MEDS: PANTOPRAZOLE 40 MG TABLET PO SCH (07:57)
[2023-01-16] MEDS: BISACODYL 10 MG SUPP.RECT PR SCH (07:58)
[2023-01-16] MEDS: NICOTINE 7 MG PATCH TOPICAL SCH (08:28)
[2023-01-16] MEDS ORDERED: ATORVASTATIN 10 MG TABLET PO SCH (09:00)
[2023-01-16] MEDS ORDERED: LISINOPRIL 5 MG TABLET PO SCH (09:00)
== END 2023-01-16 15:00 | disposition home or self-care (01) | DRG 853 ==
LOC: ED 11:52 → SUR 14:50 → ICU 19:55 → MEDSUR 01-08 18:20
PROVIDERS: ADMIT Surgery Surgical Critical Care; ATTEND Internal Medicine